=== PATIENT | male | born 1945 | race Caucasian/White ===

== ENCOUNTER 2022-12-09 11:07 | Outpatient (CLI) | payer MEDICARE, SELFPAY ==
[2022-12-09 18:58] LABS: Alanine Aminotransferase 27 U/L (6-50); Albumin Level 4.4 g/dL (3.5-5.1); Alkaline Phosphatase 64 U/L (38-126); Anion Gap 5 mmol/L (8-16); Aspartate Amino Transferase 44 U/L (17-59); Bilirubin,Total 0.6 mg/dL (0.2-1.3); Blood Urea Nitrogen 23 mg/dL (9-20); Calcium 9.4 mg/dL (8.4-10.2); Carbon Dioxide 30 mmol/L (22-30); Chloride 106 mmol/L (98-107); Cholesterol 222 mg/dL (0-200); Estimated Glomerular Filt Rate 59; Glucose 153 mg/dL (65-110); HDL Direct 39 mg/dL; Potassium 4.2 mmol/L (3.4-5.0); Sodium 141 mmol/L (137-145); Triglycerides 148 mg/dL (<150)
[2022-12-09 19:10] LABS: LDL Cholesterol Direct 135 mg/dL
[2022-12-09 20:07] LABS: Hemoglobin A1C 6.4 % (<5.7)
[2022-12-09 22:54] LABS: Creatinine Urine 109.7 mg/dL
[2022-12-10 00:36] LABS: Microalbumin Urine Random 240.2 mg/L (0-16.7)
== END 2022-12-09 11:08 | disposition home or self-care (01) ==
PROVIDERS: PCP Family Medicine; Visit Provider Family Medicine
DX: E78.5 Hyperlipidemia, unspecified (principal); E11.9 Type 2 diabetes mellitus without complications; Z13.228 Encounter for screening for other metabolic disorders
CPT/HCPCS: 36415; 80053; 80061; 82043; 83036

== ENCOUNTER 2023-08-07 10:40 | Outpatient (CLI) | payer MEDICARE, SELFPAY ==
[2023-08-07 13:28] LABS: Alanine Aminotransferase 23 U/L (6-50); Aspartate Amino Transferase 34 U/L (17-59)
== END 2023-08-07 10:41 | disposition home or self-care (01) ==
PROVIDERS: PCP Family Medicine; Visit Provider Podiatrist Foot & Ankle Surgery
DX: B35.1 Tinea unguium (principal)
CPT/HCPCS: 36415; 84450; 84460

== ENCOUNTER 2023-11-11 10:28 | Outpatient (CLI) | payer MEDICARE, SELFPAY ==
[2023-11-11 11:00] LABS: Alanine Aminotransferase 21 U/L (6-50); Aspartate Amino Transferase 35 U/L (17-59)
== END 2023-11-11 10:29 | disposition home or self-care (01) ==
LOC: ANHLAB 10:32
PROVIDERS: PCP Family Medicine; Visit Provider Podiatrist Foot & Ankle Surgery
DX: B35.1 Tinea unguium (principal)
CPT/HCPCS: 36415; 84450; 84460

== ENCOUNTER 2023-12-05 12:31 | Outpatient (CLI) | payer MEDICARE, SELFPAY ==
[2023-12-05 20:29] LABS: Creatinine Urine 118.8 mg/dL
[2023-12-05 20:34] LABS: MALB Creatinine Ratio 79.9 mg/g (0-30); Microalbumin Urine Random 94.9 mg/L (0-16.7)
[2023-12-05 20:38] LABS: Alanine Aminotransferase 27 U/L (6-50); Albumin Level 4.4 g/dL (3.5-5.1); Alkaline Phosphatase 64 U/L (38-126); Anion Gap 4 mmol/L (8-16); Aspartate Amino Transferase 46 U/L (17-59); Bilirubin,Total 0.6 mg/dL (0.2-1.3); Blood Urea Nitrogen 25 mg/dL (9-20); Calcium 9.7 mg/dL (8.4-10.2); Carbon Dioxide 26 mmol/L (22-30); Chloride 106 mmol/L (98-107); Cholesterol 135 mg/dL (0-200); Estimated Glomerular Filt Rate 59; Glucose 134 mg/dL (65-110); HDL Direct 40 mg/dL; Potassium 4.1 mmol/L (3.4-5.0); Sodium 136 mmol/L (137-145); Triglycerides 113 mg/dL (<150)
[2023-12-05 20:49] LABS: Hemoglobin A1C 6.5 % (<5.7); LDL Cholesterol Direct 71 mg/dL
== END 2023-12-05 12:32 | disposition home or self-care (01) ==
LOC: ANHGOSHLAB 12:32
PROVIDERS: PCP Family Medicine; Visit Provider Family Medicine
DX: E11.9 Type 2 diabetes mellitus without complications (principal); Z13.220 Encounter for screening for lipoid disorders; Z13.228 Encounter for screening for other metabolic disorders; I10 Essential (primary) hypertension
CPT/HCPCS: 36415; 80053; 80061; 82043; 83036

== ENCOUNTER 2024-11-01 12:29 | Outpatient (CLI) | payer MEDICARE, SELFPAY ==
[2024-11-01 13:48] LABS: Alanine Aminotransferase 18 U/L (6-50); Albumin Level 4.5 g/dL (3.5-5.1); Alkaline Phosphatase 62 U/L (38-126); Anion Gap 13 mmol/L (4-12); Aspartate Amino Transferase 33 U/L (17-59); Bilirubin,Total 0.7 mg/dL (0.2-1.3); Blood Urea Nitrogen 18 mg/dL (9-20); Calcium 9.9 mg/dL (8.4-10.2); Carbon Dioxide 24 mmol/L (22-30); Chloride 103 mmol/L (98-107); Cholesterol 211 mg/dL (0-200); Estimated Glomerular Filt Rate > 60; Glucose 131 mg/dL (65-110); HDL Direct 39 mg/dL; Potassium 4.5 mmol/L (3.4-5.0); Sodium 140 mmol/L (137-145); Triglycerides 137 mg/dL (<150)
[2024-11-01 14:00] LABS: LDL Cholesterol Direct 133 mg/dL
[2024-11-01 14:39] LABS: Hemoglobin A1C 6.6 % (<5.7)
== END 2024-11-01 12:30 | disposition home or self-care (01) ==
LOC: ANHGOSHLAB 12:30
PROVIDERS: PCP Emergency Medicine; Visit Provider Emergency Medicine
DX: E78.5 Hyperlipidemia, unspecified (principal); E55.9 Vitamin D deficiency, unspecified; E11.9 Type 2 diabetes mellitus without complications
CPT/HCPCS: 36415; 80053; 80061; 82306; 83036

== ENCOUNTER 2025-02-28 11:16 | Outpatient (CLI) | payer MEDICARE, SELFPAY ==
--- OUTSIDE RECORDS SUMMARY | 2025-02-28 11:54 | XMS_ITS | Clinical Summary ---
Author Organization [facility] Address [address] [place] [address] Care Team Providers Care It Systems Analyst Consultant Name Role Phone Unavailable Primary Care Provider Unavailabl e Social History Tobacco Use Types Packs/Day Years Used Date Smoking Tobacco: Never Assessed Sex and Gender Information Value Date Recorded Sex Assigned at Not on file Legal Sex Male 8:05 PM CDT Gender Identity Not on file Sexual Orientation Not on file Plan of Treatment Health Maintenance Due Date Last Done Comments Hepatitis C 1963 DTaP, Tdap and Td Vaccines ( 1 - Tdap) 1965 Pneumococcal Vaccine: 50+ Ye ars (1 of 1 - PCV) 1996 Zoster Vaccines (1 of 2) 1996 RSV Immunization or 60+ Years (1 - 1-dose 75+ series) 2021 COVID-19 Vaccine (2023-2 5 season) 2024 Meningococcal B Vaccine Aged Out No l onger eligible based on patient's age to complete this topic Meningococcal Vaccine Aged Out No cici angela eligible based on patient's age to complete this topic RSV Immunizations Under 20 Months Aged Out No longer eligible based on patient's age to complete this topic
--- OUTSIDE RECORDS SUMMARY | 2025-02-28 11:54 | XMS_ITS | Continuity of Care Document ---
Author Organization [facility] Address [address] [place] [address] [address] [place] [address] Phone Care Team Providers Care Sanding Supervisor Name Role Phone Donna SHETTY, Eitan Forde [...] Provider Providers Copied on Encounter [facility] [place], [address] [facility] [address], [place], [place], [address], [place] tel:[phone] [address] [place] [address] [facility] No Information - 0 Krishnasamy Eitan. [address], [place], [place], [address], [place]. tel:[phone] Referring Provider: Eitan han, [address], [place], [address] . tel:[phone] [facility], [address] [place] [address] [address], [place], [address], tel:[phone] [address] [place] [address] No Information Jun-2 0 Krishnasamy Eitan. [address], [place], [place], [address], [place]. tel:[phone] Referring Provider: Eitan han, [address], [place], [address] . tel:[phone] [facility] [place], [address] [place] [address] [address], [place], [place], [address], tel:[phone] OPH CONSULT [facility] No Information Sep-0 0 Krishnasamy Eitan. [address], [place], [place], [address], [place]. tel:[phone] [facility] [place], [address] [place] [address] [address], [place], [address], tel:[phone] Oph Consult [facility] No Information Sep-0 8 0 Krishnasamy Eitan. [address], [place], [place], [address], [place]. tel:[phone] Referring Provider: Kip Trejo MD, [address] [facility] [address], [place], [address]. tel:[phone] Family History Family Member Type Diagnosis Age At Onset No Information Payers Payer name Insurance type Covered democrat ID Authorcieloa hodan(s) [facility] Medicare Advantage Hmo 16 [id number] Social History Type Description Quantity Date Captured [...]
[2025-02-28 22:18] LABS: Alanine Aminotransferase 24 U/L (6-50); Albumin Level 4.4 g/dL (3.5-5.1); Alkaline Phosphatase 55 U/L (38-126); Anion Gap 11 mmol/L (4-12); Aspartate Amino Transferase 48 U/L (17-59); Bilirubin,Total 0.4 mg/dL (0.2-1.3); Blood Urea Nitrogen 28 mg/dL (9-20); Calcium 9.4 mg/dL (8.4-10.2); Carbon Dioxide 24 mmol/L (22-30); Chloride 106 mmol/L (98-107); Cholesterol 197 mg/dL (0-200); Estimated Glomerular Filt Rate 59; Glucose 110 mg/dL (65-110); HDL Direct 43 mg/dL; Potassium 4.6 mmol/L (3.4-5.0); Sodium 141 mmol/L (137-145); Triglycerides 91 mg/dL (<150)
[2025-02-28 22:27] LABS: Vitamin D 25 Hydroxy 45.1 ng/mL
[2025-02-28 22:29] LABS: Hemoglobin A1C 5.8 % (<5.7); LDL Cholesterol Direct 112 mg/dL
== END 2025-02-28 11:17 | disposition home or self-care (01) ==
LOC: ANHGOSHLAB 11:16
PROVIDERS: PCP Emergency Medicine; Visit Provider Emergency Medicine
DX: E55.9 Vitamin D deficiency, unspecified (principal); E78.5 Hyperlipidemia, unspecified; E11.9 Type 2 diabetes mellitus without complications
CPT/HCPCS: 36415; 80053; 80061; 82306; 83036

== ENCOUNTER 2025-06-27 11:29 | Outpatient (CLI) | payer MEDICARE, SELFPAY ==
--- OUTSIDE RECORDS SUMMARY | 2020-07-24 04:30 | XMS_ITS | Continuity of Care Document ---
Author Organization [facility] Address [id number] [place] [address] [address] [place] [address] Phone Care Team Providers Care Pipe Organ Technician Name Role Phone Donna SHETTY, Eitan Forde Unavaila ble Medications Medication Instructions Dosage Effective Dates (start - stop) Status Comments Besivance 0.6 % eye drops,suspension instill 1 drop in RIGHT eye BID starting 4 hours after surgery and continue for 1 week. (see comments) - Active use this generic alternative only: ofloxacin 1 drop in right eye four times a day starting AFTER surgery and continue for 1 week. 5 refills Prolensa 0.07 % eye drops instill 1 drop in right eye QD starting 4 hours after surgery and continue for 4 weeks. ( see comments) - Active use this alternative Ketorolac 0.4% or 0.5% 1 drop in right eye QID starting AFTER surgery and continue for 4 weeks. 5 refills Lotemax 0.5 % eye gel drops instill 1 drop in right eye BID starting 4 hours after surgery and continue for 4 weeks. (see comments) - Active use this alternative only: Pred Forte sig: instill 1 drop in right eye QID starting 4 hours after surgery and continue for 4 weeks. 5 refills Procedures Procedure Date CATARACT SURG W/IOL, 1 STAGE CATARACT SURG W/IOL, 1 STAGE EYE EXAM, NEW PATIENT Advance Directives Directive Yes / No Effective Date File Name No Information Encounters Encounter Description Practice Location Reason(s) For Visit Diagnoses Date Provider Providers Copied on Encounter [facility], [address] [facility] [address], [place], [place], [id number], [place] tel:[phone] [address] [place] [address] [facility] No Information - 0 Krishnasamy Eitan. [address], [place], [place], [address], [place]. tel:[phone] Referring Provider: Eitan han, [address], [place], [address] . tel:[phone] [facility], [address] [place] [address] [address], [place], [id number], tel:[phone] [address] [place] [address] No Information Jun-2 0 Krishnasamy Eitan. [address], [place], [place], [address], [place]. tel:[phone] Referring Provider: Eitan han, [address], [place], [address] . tel:[phone] [facility], [address] [place] [address] [address], [place], [place], [id number], tel:[phone] [facility] No Information Sep-0 0 Krishnasamy Eitan. [address], [place], [place], [address], [place]. tel:[phone] [facility], [address] [place] [address] [address], [id number], tel:[phone] [facility] No Information Sep-0 8 0 Krishnasamy Eitan. [address], [place], [place], [address], [place]. tel:[phone] Referring Provider: Kip Trejo MD, [address] [facility] [address], [place], [address]. tel:[phone] Family History Family Member Type Diagnosis Age At Onset No Information Payers Payer name Insurance type Covered republican ID Authorcieloa hodan(s) [facility] Medicare Advantage Hmo 16 [id number] Social History Type Description Quantity Date Captured Comments Sex Male Smoking Status No Information Chief Complaint And Reason For Visit No Information Reason For Referral Reason For Referral No Information History Of Present Illness Encounter Date Complaint History Of Prese nt Illness No Information Functional Status Date Functional Assessmen t No Information Instructions Date Instruction Additional Infor mation No Information Assessments Type Assessment Date No Information Patient Care Teams Name Effective Dates (start - stop) Status Members No Information
--- OUTSIDE RECORDS SUMMARY | 2025-06-27 13:45 | XMS_ITS | Clinical Summary ---
Author Organization [facility] Address [address] [place] [address] Care Team Providers Care Plastics Repairer Name Role Phone Unavailable Primary Care Provider [...] - 1-dose 75+ series) 2021 COVID-19 Vaccine ( - 2023-2 5 season) 2025 Meningococcal B Vaccine Aged Out No l onger eligible based on patient's age to complete this topic Meningococcal Vaccine Aged Out No cici angela eligible based on patient's age to complete this topic RSV Immunizations Under 20 Months Aged Out No longer eligible based on patient's age to complete this topic
[2025-06-27 18:46] LABS: Alanine Aminotransferase 22 U/L (6-50); Albumin Level 4.3 g/dL (3.5-5.1); Alkaline Phosphatase 63 U/L (38-126); Anion Gap 8 mmol/L (4-12); Aspartate Amino Transferase 66 U/L (17-59); Bilirubin,Total 0.7 mg/dL (0.2-1.3); Blood Urea Nitrogen 23 mg/dL (9-20); Calcium 9.4 mg/dL (8.4-10.2); Carbon Dioxide 26 mmol/L (22-30); Chloride 104 mmol/L (98-107); Cholesterol 190 mg/dL (0-200); Estimated Glomerular Filt Rate 60; Glucose 112 mg/dL (65-110); HDL Direct 42 mg/dL; Potassium 4.6 mmol/L (3.4-5.0); Sodium 138 mmol/L (137-145); Total Protein 7.5 g/dL (6.3-8.2); Triglycerides 87 mg/dL (<150)
[2025-06-27 19:11] LABS: MALB Creatinine Ratio 40.0 mg/g (0-30)
[2025-06-27 19:35] LABS: Hemoglobin A1C 6.0 % (<5.7)
== END 2025-06-27 11:30 | disposition home or self-care (01) ==
LOC: ANHGOSHLAB 11:30
PROVIDERS: PCP Emergency Medicine; Visit Provider Emergency Medicine
DX: E11.9 Type 2 diabetes mellitus without complications (principal); E78.5 Hyperlipidemia, unspecified; E55.9 Vitamin D deficiency, unspecified
CPT/HCPCS: 36415; 80053; 80061; 82043; 82306; 83036